=== PATIENT | female | born 1985 | race Caucasian/White ===

== ENCOUNTER 2020-01-25 05:25 | Emergency (ER) | payer BC ==
[~2020-01-25] VITALS: Ht 154.9 cm; Wt 72.7 kg
[2020-01-25 05:54] LABS: COLLECTION METHOD CLEAN CATCH
[2020-01-25 06:05] LABS: BASO % 0.1 % (0.0-2.0); EOS % 0.2 % (0-4.0); HEMOGLOBIN 13.6 g/dl (12.5-16.0); LYMPH # 1.1 (1.2-3.4); LYMPH % 10.9 % (20.0-51.0); MEAN CELL VOLUME 89 fl (80.0-100.0); MEAN CORPUSCULAR HEMOGLOBIN 30 pg (27.0-31.0); MEAN CORPUSCULAR HGB CONC 34 g/dl (33.0-37.0); MEAN PLATELET VOLUME 10.8 fl (7.4-10.4); MONO # 0.9 (0.1-0.6); MONO % 8.4 % (1.7-9.3); PLATELET COUNT 189 K/mm3 (130-400); RED BLOOD COUNT 4.51 M/mm3 (4.10-5.30); REDCELL DISTRIBUTION WIDTH-CV 12.3 % (11.5-14.5)
[2020-01-25 06:17] LABS: ALBUMIN 4.5 gm/dL (3.5-5.0); BILIRUBIN,TOTAL 0.8 mg/dL (0.0-1.0); C-REACTIVE PROTEIN 2.9 mg/dL (0.0-0.9); CALCIUM 9.6 mg/dL (8.4-10.2); CREATININE, serum 0.61 (0.52-1.25); TOTAL PROTEIN 7.5 gm/dL (6.4-8.2)
[2020-01-25 06:28] LABS: PH 5 (5-8); SQUAMOUS EPITHELIAL 0-2 /hpf; URINE APPEARANCE Clear; URINE BACTERIA None Seen /hpf; URINE BILIRUBIN Negative (NEGATIVE); URINE BLOOD 1+ (NEGATIVE); URINE COLOR Straw; URINE GLUCOSE Negative (NEGATIVE); URINE KETONE Negative (NEGATIVE); URINE LEUKOCYTE ESTERASE Negative (NEGATIVE); URINE NITRATE Negative (NEGATIVE); URINE PROTEIN(semi-quant) Negative (NEGATIVE); URINE RBC 0-2 /hpf; URINE UROBILINOGEN Negative (NEGATIVE)
[2020-01-25 08:09] VITALS: BP 102/71; PULSE 98; TEMP 97.6
[2020-01-26] MEDS ORDERED: TYLENOL 325MG325 MG PO (15:03)
== END 2020-01-25 08:09 | disposition home or self-care (01) ==
LOC: COL.ER 05:25
PROVIDERS: Emergency Medicine
DX: N20.1 Calculus of ureter (principal); Z32.02 Encounter for pregnancy test, result negative
CPT/HCPCS: J1885; J2405; J3010; J7030; Q9967

== ENCOUNTER 2020-01-26 14:33 | Inpatient (IN) | payer BC ==
[~2020-01-26] VITALS: Ht 152.4 cm; Wt 73.8 kg
--- NOTE | 2020-01-26 07:30 | NUR ---
PATIENT UP FROM PACU. PATIENT HAS LOW GRADE FEVER BUT NO OTHER COMPLAINTS.
[2020-01-26 14:58] VITALS: BP 110/70; PULSE 115; TEMP 100.6
--- NOTE | 2020-01-26 15:01 | NUR ---
Patient has a negative COVID-19 test on her chart from [facility] on 01/26/2020.
[2020-01-26] MEDS ORDERED: TYLENOL 325MG325 MG PO (15:03)
--- NOTE | 2020-01-26 15:14 | NUR ---
Patient's HR is tachy at 115 on admission. Her BP is 110/70. She reports fevers as high as 103 degrees today. She took 2 regular strenght tylenol tablets at 1300 today and her temperature is now 100.6 degrees. Her vitals are reported to Maury England CRNA who orders a 500 mL LR bolus pre-op. This is started at this time. He is also notified that the patient reports a previous sensitivity to epinephrine when given it for allergic reaction.
--- NOTE | 2020-01-26 16:00 | NUR ---
Patient rounding is completed at this time. She denies any needs.
--- NOTE | 2020-01-26 16:00 | NUR ---
500mL LR bolus is completed.
--- NOTE | 2020-01-26 16:44 | NUR ---
Patient rounding is completed. She denies any needs at this time.
[2020-01-26 19:00] VITALS: BP 113/74; PULSE 107; TEMP 99.3
[2020-01-26 19:30] VITALS: BP 115/85; PULSE 113; TEMP 98.5
[2020-01-26 20:00] VITALS: BP 115/66; PULSE 125; TEMP 98.5
[2020-01-26 21:00] VITALS: BP 129/92; PULSE 126
[2020-01-26 22:00] VITALS: BP 118/93; PULSE 118; TEMP 100.8
--- NOTE | 2020-01-26 22:30 | NUR ---
PATIENT HAS A FEVER AND IS TACHYCARDIA. PATIENT COMPLAINING OF BEING COLD WITH CHILLS AND PAIN. PATIENT GIVEN PERCOCET. CALLED AND HE SAID TO CONTINUE DOING FLUIDS.
[2020-01-27] VITALS (13 sets, daily range): BP systolic 97–132; BP diastolic 62–93; PULSE 87–143; TEMP 98.2–102.9
--- NOTE | 2020-01-27 00:30 | NUR ---
PATIENT FEVER GETTING WORSE AND IS MORE TACHYCARDIC. CALLED AND GOT ORDERS FOR A FLUID BOLUS, 650 MG OF TYLENOL, AND TO INSERT A MEANS CATHETER.
--- NOTE | 2020-01-27 03:13 | NUR ---
PATIENTS FEVER DOWN TO 98.6. STILL A LITTLE TACHYCARDIC. PATIENT REPORTS FEELING BETTER. GOOD OUTPUT FROM MEANS.
--- NOTE | 2020-01-27 09:30 | NUR ---
Patient alert and oriented, answers questions appropriately. See assessment. Abdomen soft, non tender, non distended. Bowel sounds active x4 quads. +Flatus. No c/o flank pain. Yanes catheter patent and draining clear yellow urine. Respers even and unlabored. Oxygen at 2l/nc. C/o SOA with activity. Oxygen decreases to 86-88% with activity, 90-92% at rest. Tachycardia with activity. Patient states has little energy. Dr Calin schmidtftified of above. See orders.
--- NOTE | 2020-01-27 11:36 | NUR ---
Lucia Pierson notified of consult.
[2020-01-27 12:57] LABS: BASO % 0.3 % (0.0-2.0); EOS # 0.1 (0.0-0.7); GRAN # 4.5 (1.4-6.5); GRAN % 61.2 % (42.2-75.2); HEMOGLOBIN 11.7 g/dl (12.5-16.0); LYMPH # 1.7 (1.2-3.4); LYMPH % 23.3 % (20.0-51.0); MEAN CELL VOLUME 92 fl (80.0-100.0); MEAN CORPUSCULAR HEMOGLOBIN 30 pg (27.0-31.0); MEAN CORPUSCULAR HGB CONC 33 g/dl (33.0-37.0); MEAN PLATELET VOLUME 11.3 fl (7.4-10.4); MONO % 13.2 % (1.7-9.3); PLATELET COUNT 100 K/mm3 (130-400); RED BLOOD COUNT 3.85 M/mm3 (4.10-5.30); REDCELL DISTRIBUTION WIDTH-CV 12.8 % (11.5-14.5)
[2020-01-27 12:58] LABS: HEMATOCRIT 35.5 % (37.0-47.0)
[2020-01-27 13:01] LABS: CALCIUM 8.3 mg/dL (8.4-10.2); CREATININE, serum 0.54 (0.52-1.25); POTASSIUM 4.1 mmol/L (3.4-5.0)
--- NOTE | 2020-01-27 13:30 | NUR ---
Initial visit; Patient thanked Finish Mixer for looking in on her, offering God's blessings and keeping her in Finish [employer]er's prayers.
--- NOTE | 2020-01-27 13:41 | NUR ---
Report given to BRIGITTE Murphy. Transferred to room 304 pending Covid swab.
--- NOTE | 2020-01-27 14:58 | NUR ---
Reach Truck Operator met with patient to discuss discharge planning. Patient lives in [place], [place] with her parents Reagan and María (ph#[phone]). Patient does not have a primary care physician at this time but would like to get set up with Dr. Barajas at [facility] as that's who her mom sees. Patient obtains medications from [facility] in [place]. Patient is employed at [employer] in . Patient does not use any DME and reports independence with ADLS. Patient is currently on 2 liters of oxygen. Patient does not have Advance Directives. Patient states she is engaged to [facility] (ph#[phone]). Patient does not have children. Patient plans to return home upon discharge. SW contacted BRIGITTE Kimball-CM at [facility] who advised Dr. Barajas is willing to accept patient. SW to follow up to make appointment upon discharge. Patient was transferred to [facility] as she is now PUI for COVID.
--- NOTE | 2020-01-27 17:43 | NUR ---
PT PLEASANT, HYPOTENSIVE, PT AOX4, PT BELONGINGS LISETTE UP FROM ED INTO PT ROOM, GALO BROUGHT UP INTO ROOM, PT HAD HEADACHE AND SLIGHT FEVER, BOTH RESOLVED WITH TYLENOL, PT RAPID CAME BACK NEGATIVE. 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 FLUIDS RUNNING, VITALS STABLE AT THIS TIME. NO OTHER NEEDS.
--- NOTE | 2020-01-27 21:40 | NUR ---
Patient assessed at this time. Alert and oriented x 4, and able to make needs known. Reported level 4 headache. Given PRN APAP as requested. Peripheral IV to left hand, with fluids and antibiotics running per orders. LS CTA in upper lobes, diminished in lower. Respirations even and unlabored. Patient in currently on room air. Denies SOB and dyspnea. HRR. Telemetry: sinus. Capillary refill less than 3 seconds. Non-tenting skin turgor. BSAx4. Abdomen soft and non-tender. Indwelling najera catheter patent, and draining clear, blood tinged urine. Denies pain and discomfort to bladder area. No edema. Voices no questions, needs, or concerns at this time. Resting in bed with call light within reach.
[2020-01-28 02:56] VITALS: BP 114/82; PULSE 86; TEMP 98.9
--- NOTE | 2020-01-28 06:18 | NUR ---
Patient has been resting in bed with call light within reach. Has denied having pain and discomfort since receiving PRN APAP at beginning of shift. Indwelling najera catheter patent, and draining clear yellow urine via dependent drainage. Occasionally has a pink tinge to it. Voices no questions, needs, or concerns at this time. Resting in bed with call light within reach.
[2020-01-28 08:22] VITALS: BP 108/80; PULSE 95; TEMP 98.3
--- NOTE | 2020-01-28 09:57 | NUR ---
PT PLEASANT, AOX4, PT EAGER FOR DISCHARGE, MEANS DRAINING PINK TINGED URINE, PT INDEPENDENT IN ROOM, PT DENIES PAIN OR DISCOMFORT, PT ON ROOM AIR SATTING WELL, VITALS STABLE, NO OTHER NEEDS AT THIS TIME.
[2020-01-28 11:53] VITALS: BP 108/90; PULSE 86; TEMP 98.7
[2020-01-28 12:57] LABS: BASO % 0.2 % (0.0-2.0); EOS # 0.1 (0.0-0.7); EOS % 1.7 % (0-4.0); GRAN # 2.5 (1.4-6.5); GRAN % 61.6 % (42.2-75.2); HEMOGLOBIN 10.8 g/dl (12.5-16.0); LYMPH # 1.1 (1.2-3.4); LYMPH % 26.2 % (20.0-51.0); MEAN CELL VOLUME 90 fl (80.0-100.0); MEAN CORPUSCULAR HEMOGLOBIN 30 pg (27.0-31.0); MEAN CORPUSCULAR HGB CONC 34 g/dl (33.0-37.0); MEAN PLATELET VOLUME 11.8 fl (7.4-10.4); MONO # 0.4 (0.1-0.6); MONO % 10.1 % (1.7-9.3); PLATELET COUNT 129 K/mm3 (130-400); RED BLOOD COUNT 3.59 M/mm3 (4.10-5.30); REDCELL DISTRIBUTION WIDTH-CV 12.6 % (11.5-14.5)
[2020-01-28 13:10] LABS: CALCIUM 8.5 mg/dL (8.4-10.2); CREATININE, serum 0.57 (0.52-1.25); POTASSIUM 3.8 mmol/L (3.4-5.0)
[2020-01-28 13:31] LABS: HEMATOCRIT 32.2 % (37.0-47.0)
[2020-01-28 16:00] VITALS: BP 110/88; PULSE 88; TEMP 98.1
--- NOTE | 2020-01-28 17:25 | NUR ---
PT PLEASANT, AOX4, RESTING IN BED MOST OF DAY, PT ON ROOM AIR, URINE PINK TINGED, GOOD OUTPUT, FLUIDS DC'D, VITALS STABLE, ALL MEDICATIONS GIVEN, NO OTHER NEEDS AT THIS TIME.
[2020-01-28 20:46] VITALS: BP 117/82; PULSE 93; TEMP 98.3
[2020-01-28 23:33] VITALS: BP 122/83; PULSE 92; TEMP 98
[2020-01-29 04:00] VITALS: BP 121/83; PULSE 84; TEMP 97.9
--- NOTE | 2020-01-29 06:33 | NUR ---
Patient voiding without difficulty after najera catheter removed. Patient denied pain or discomfort. No s/s of distress
[2020-01-29 08:18] LABS: BASO % 0.2 % (0.0-2.0); EOS # 0.1 (0.0-0.7); GRAN # 2.4 (1.4-6.5); GRAN % 59.1 % (42.2-75.2); LYMPH # 1.2 (1.2-3.4); LYMPH % 28.8 % (20.0-51.0); MEAN CELL VOLUME 91 fl (80.0-100.0); MEAN CORPUSCULAR HEMOGLOBIN 30 pg (27.0-31.0); MEAN CORPUSCULAR HGB CONC 33 g/dl (33.0-37.0); MEAN PLATELET VOLUME 10.7 fl (7.4-10.4); MONO # 0.4 (0.1-0.6); MONO % 8.7 % (1.7-9.3); PLATELET COUNT 174 K/mm3 (130-400); RED BLOOD COUNT 3.64 M/mm3 (4.10-5.30); REDCELL DISTRIBUTION WIDTH-CV 12.5 % (11.5-14.5)
[2020-01-29 08:25] LABS: HEMATOCRIT 33.1 % (37.0-47.0)
[2020-01-29 08:30] VITALS: BP 126/68; PULSE 108; TEMP 97.7
[2020-01-29 08:32] LABS: CALCIUM 8.8 mg/dL (8.4-10.2); CREATININE, serum 0.53 (0.52-1.25); POTASSIUM 3.7 mmol/L (3.4-5.0)
--- NOTE | 2020-01-29 10:01 | NUR ---
patient alert and oriented. denies any pain. Patient appetite is good. Ate breakfast okay. "Ready to discharge". Patient resting in bed at this time, with no further concern or question.
[2020-01-29] MEDS ORDERED: BACTRIM DS 8001 TAB PO (10:22)
--- NOTE | 2020-01-29 10:56 | NUR ---
The patient is to discharge back home with her parents today, 01/28. SW notified the community engagement coordinator that she has been established with Dr. Barajas and will need a follow up appointment made with her. The community engagement coordinator plans to schedule an appointment with Dr. Barajas. No additional needs at this time.
[2020-01-29 12:06] VITALS: BP 120/82; PULSE 79; TEMP 98.2
--- NOTE | 2020-01-29 15:51 | NUR ---
INT discontinued. Patient received first dose of Bactium DS 800MG/160MG, Patient was discharge with 14 quantities of above antibiotics to be picked up at preferred pharmacy on file, [facility]. Patient called back after discharge with request to change pickup pharmacy to [facility], as it is "closer to patient's house". this RN called prescrition in to [facility] as ordered by physician-Dr Desai on discharge order. RN also called [facility] pharmacy to cancel the medication order sent to them to avoid duplicate order. Changed pharmacy preference on patient's file as requested.
== END 2020-01-29 15:00 | disposition home or self-care (01) | DRG 654 ==
LOC: SDCO 14:33 → SURG 19:00 → SDCO 01-27 14:12 → SURG 01-27 14:14 → PEDS 01-27 14:14 → SDCO 01-27 14:14 → SURG 01-27 14:16 → PEDS 01-27 14:16
PROVIDERS: Student in an Organized Health Care Education/Training Program; ADMIT Urology
PROC: 0TC68ZZ Extirpation of Matter from Right Ureter, Via Natural or Artificial Opening Endoscopic (ICD-10-PCS; principal; 2020-01-27)
PROC: 0T7B8DZ Dilation of Bladder with Intraluminal Device, Via Natural or Artificial Opening Endoscopic (ICD-10-PCS; 2020-01-27)
PROC: BT1DYZZ Fluoroscopy of Right Kidney, Ureter and Bladder using Other Contrast (ICD-10-PCS; 2020-01-27)
DX: N20.1 Calculus of ureter (principal); R65.10 Systemic inflammatory response syndrome (SIRS) of non-infectious origin without acute organ dysfunction; N39.0 Urinary tract infection, site not specified; R35.0 Frequency of micturition; R09.02 Hypoxemia; B95.61 Methicillin susceptible Staphylococcus aureus infection as the cause of diseases classified elsewhere; Z20.828 Contact with and (suspected) exposure to other viral communicable diseases; Z87.440 Personal history of urinary (tract) infections
CPT/HCPCS: OP; 99222; 99232-AI; 99239; A9284; C1769; C2617; J0690; J0696; J2405; J2543; J2704; J3010; J7030; J7120; Q9967